=== PATIENT | female | born 1970 | race African-American/Black ===

== ENCOUNTER → 2018-08-16 | Outpatient (CLI) | payer OTHER ==
[~2018-08-16] MED LIST: ALLEGRA-D 12 H1 EAC1; AMOXICILLIN 50500 M1 PO; AUGMENTIN 875875 M1 PO; AZITHROMYCIN 2250 MG PO; FLEXERIL PO; FLONASE 0.05%50 MCG NASAL; HYCET 7.5 MG-3473 ML PO; IBUPROFEN 200200 M1 PO; IBUPROFEN 600600 M1 PO; IBUPROFEN 800800 M1 PO; LORTAB 5 MG/5001 TA1 PO; NEXIUM40 MG PO; NOHOMEMEDICATIONS; NORCO 5-325 TA1 EACH PO; ONDANSETRON HCL4 M2 PO; PERCOCET 5-3251 EACH PO; PERCOCET PO; PRAVACHOL20 MG; PREDNISONE 20 M20 M1 PO; PREDNISONE 20 M20 MG PO; TRAMADOL 50 MG50 MG PO; TUSSIONEX PENN473 ML PO; VALIUM2 MG PO; VALIUM5 MG PO; VENTOLIN HFA 1818 GM INH; VITAMIN B-12500 MCG PO; VITAMIN D1000 UNI1; VITAMIN D1000 UNI1 PO; ZPAK PO; ZYRTEC1 MG/1 ML PO; ZYRTEC10 MG PO
== END ==
LOC: ULTRA 09:02
DX: R10.9 Unspecified abdominal pain (principal)